=== PATIENT | male | born 1945 | race Caucasian/White ===

== ENCOUNTER → 2020-05-18 | Outpatient (CLI) | payer OTHER, BC ==
[~2020-05-18] MED LIST: ADVAIR 250-501 EACH INH; CALCIUM 600+D1 EACH PO; HYDROCODON-ACE1 EAC7 PO; LEVO-T50 MCG PO; LISINOPRIL20 MG PO; PROAIR HFA8.5 GM INH; PROSTATE CONTR1 EACH PO
== END ==
LOC: LAB 14:39
PROVIDERS: ATTEND Surgery
DX: Z20.822 Contact with and (suspected) exposure to COVID-19 (principal)

== ENCOUNTER 2020-05-20 08:52 | Day surgery (SDC) | payer OTHER, BC ==
[~2020-05-20] VITALS: Ht 190.5 cm; Wt 102.1 kg
--- NOTE | ~2020-05-20 | O ---
[facility] [place] [address] OPERATIVE REPORT Name: SIMON DEWITT Room #: DEP [facility] M..#: [id number] Admission: 05/20/20 Attend Phys: Alexis Leung MD Discharge: 05/20/20 Date of : 41 Report #: [id number] THIS REPORT FOR: cc: FAM - Family physician unknown FAM - Family physician unknown Alexis Leung MD ~ DATE OF SERVICE: 05/20/2020 PREOPERATIVE DIAGNOSIS: Large right inguinal hernia extending into the scrotum and umbilical hernia. POSTOPERATIVE DIAGNOSES: 1. Large right indirect inguinal hernia. 2. Umbilical hernia. PROCEDURES PERFORMED: 1. Laparoscopic properitoneal repair of large right indirect inguinal hernia with a large 3DMax lightweight mesh. 2. Repair of umbilical hernia with small Ventralex ST patch. ANESTHESIA: General. SURGEON: Alexis Leung MD COMPLICATIONS: None. BLOOD LOSS: 5 mL. PROCEDURE NOTE: With the patient under general anesthesia, Jeffrey catheter was placed. Abdomen was prepped and draped in sterile fashion. Timeout was performed. A 0.25% Marcaine was used to anesthetize the skin infraumbilically and slightly to the right of the umbilicus, a transverse incision about a centimeter and half was made adjacent on the right side of the umbilicus, carried underneath the umbilicus. The anterior rectus fascia was identified and this was incised transversely about an inch away from the umbilicus. The rectus muscle was ____ with hemostat longitudinally along the length of its fiber. The posterior fascia and the space between the rectus muscle and posterior fascia was bluntly dissected free. Balloon trocar was placed through the space. CO2 was placed. Under visualization, 5 mm trocar was placed in the properitoneal space. Properitoneal space was opened up without difficulty. The inferior epigastric artery and vein was identified. This was left anteriorly to the properitoneal space. The patient did have a large indirect hernia sac seen. Dissection was also carried out freeing the pubic bone. There is some extra fat on the right side, but the pubic bone was identified and isolated. The lateral abdominal wall was free lateral to the epigastric vessel. A second 5 mm [facility] [address] [place] [address] OPERATIVE REPORT Name: SIMON DEWITT Room #: DEP [facility] M..#: [id number] Admission: 05/20/20 Attend Phys: Alexis Leung MD Discharge: 05/20/20 Date of : 41 Report #: [id number] trocar was placed here. The hernia sac was found and the hernia sac was pulled out of the internal ring. The hernia sac was quite large, but it was actually not adherent and it was easily delivered and brought off the cord structure. The vas and cord structure was isolated and normal. The internal ring is identified. No other structures identified in the internal ring. The internal ring did have a moderate separation about 2 cm in size. The floor of the inguinal canal was intact, somewhat attenuated. No direct defect was seen. A large 3DMax lightweight mesh was placed through the 11 mm trocar. This was then opened in the properitoneal space and then positioned to cover the internal ring and the floor of the inguinal canal also. I did shift the mesh slightly lateral to get a better coverage laterally. Because of the large indirect nature of the hernia, no direct defect. The mesh was tacked to the abdominal wall laterally with SorbaFix. The mesh was tacked inferior medially to the tissue over the pubic bone/Pratik's ligament. The mesh was tacked superiorly to the rectus muscle and the oblique muscle. This is superior medial part of the mesh. The only position that was not tacked down is lateral inferior edge because of the nerved running in this area. The mesh seated well. The hernia sac that was brought out was identified and it is medial to the mesh and separate from the internal ring well. CO2 was evacuated. At the umbilical incision, the posterior fascia was opened and the peritoneum was opened, CO2 that was in the abdomen was released. The posterior fascia was closed with [id number] 0 PDS x 1. The anterior fascia was closed with 0 PDS [id number] x 2. This is for the laparoscopic site. The incision was carried underneath the umbilicus. An umbilical hernia was found. The defect was about 1.5 cm. Fascia edges were trimmed out, the herniated fatty tissue was reduced in the properitoneal space. Properitoneal dissection was then easily performed. Once the properitoneal space was opened, a small Ventralex patch was placed on the fascia. The mesh opened up well. The fascia was then closed with 0 Prolene horizontal mattress fashion x 2 stitches. Skin of the umbilicus was sewn down to the fascia with 4-0 PDS. Skin was then closed with 4-0 PDS in interrupted fashion. Steri-Strip, cotton ball and Op-Site was used for dressing the umbilicus. Steri-Strip, Band-Aids used for the two 5 mm trocar site. Jeffrey catheter was removed. The patient was awakened and taken to recovery room. By: 1620 1646 Alexis Leung MD /nt
[~2020-05-20 08:52] MED LIST changes: -HYDROCODON-ACE1 EAC7 PO
[2020-05-20 11:05] VITALS: BP 147/86
[2020-05-20] MEDS ORDERED: HYDROCODON-ACE1 EAC7 PO (13:24)
[2020-05-20 13:36] VITALS: BP 147/86
--- NOTE | 2020-05-20 14:53 | EKG ---
[place] [address] [facility] [place] [address] [address] ELECTROCARDIOGRAM REPORT Name: SIMON DEWITT Room #: DEP [facility]..#: [id number] Admission: 05/20/20 Attend Phys: Alexis Leung MD Discharge: 05/20/20 Date of : 41 Report #: [id number] [facility] Test Date: 2020-05-20 Test Time: 10:25:25 Pat Name: SIMON DEWITT Department: Room: 150 8 Gender: M Cotton Tipper: FABRICE : 1945 Requested By: Bertha Baez Order Number: [id number] MD: Clif Wall Measurements Intervals Bridgman Rate: 65 P: SD: QRS: 82 QRSD: 111 T: 42 QT: 403 QTc: 419 Interpretive Statements Sinus rhythm Borderline right axis deviation Low voltage, extremity and precordial leads Abnormal R-wave progression, late transition No previous ECG available for comparison Electronically Signed On 05-20-2020 14:53:36 CDT by Clif aWll [email or web address] <ELECTRONICALLY SIGNED> By: Clif Wall MD 05/20/20 1453 1025 1025 Clif Wall MD /MARGARET
== END 2020-05-20 14:12 | disposition home or self-care (01) ==
LOC: OR 08:52 → TBA 08:52 → OR 09:44
PROVIDERS: ATTEND Surgery
DX: K40.90 Unilateral inguinal hernia, without obstruction or gangrene, not specified as recurrent (principal); K42.9 Umbilical hernia without obstruction or gangrene; I10 Essential (primary) hypertension; J43.9 Emphysema, unspecified; E03.9 Hypothyroidism, unspecified; F17.210 Nicotine dependence, cigarettes, uncomplicated; Z98.890 Other specified postprocedural states; Z79.899 Other long term (current) drug therapy; Z96.653 Presence of artificial knee joint, bilateral
CPT/HCPCS: 50010; 50101; 50119; 50411; 50507; 50555; 53065; 53307; 56525; 56526; 58574; 62110; 62900; 70005